=== PATIENT | female | born 1990 | race Caucasian/White ===

== ENCOUNTER 2019-02-02 13:03 | Emergency (ER) | payer SELFPAY ==
[2019-02-02 13:11] VITALS: BMI 27.1
[2019-02-02 13:15] VITALS: TEMP 99.3
[2019-02-02 14:08] LABS: BASO # 0.1 K/uL (0.0-0.2); BASO % 0.6 % (0.0-2.0); EOS # 0.2 K/uL (0.0-0.7); EOS % 2.5 % (0.0-4.0); HEMOGLOBIN 11.2 g/dL (11.0-16.0); LYMPH # 2.3 K/uL (1.0-4.3); LYMPH % 24.3 % (20.0-40.0); MEAN CELL VOLUME 73.6 fL (81.0-99.0); MEAN CORPUSCULAR HEMOGLOBIN 24.3 pg (27.0-31.0); MEAN CORPUSCULAR HGB CONC 33.1 g/dL (33.0-37.0); MEAN PLATELET VOLUME 7.3 fL (7.2-11.7); MONO # 0.5 K/uL (0.0-0.8); MONO % 5.6 % (0.0-10.0); NEUT # 6.4 K/uL (1.8-7.0); RBC 4.61 Mil/uL (3.80-5.20); RED CELL DISTRIBUTION WIDTH 16.5 % (11.5-14.5); WHITE BLOOD COUNT 9.5 K/uL (4.8-10.8)
[2019-02-02 14:21] LABS: ALB/GLOB RATIO 1.3 (1.0-2.1); ALBUMIN 4.4 g/dL (3.5-5.0); ALT/SGPT 11 U/L (9-52); AST/SGOT 22 U/L (14-36); BLOOD UREA NITROGEN 10 mg/dL (7-17); CALCIUM 9.4 mg/dl (8.6-10.4); GFR NON-AFRICAN AMERICAN > 60; LIPASE 87 U/L (23-300)
[2019-02-02 14:28] LABS: SQUAMOUS EPITHIAL 1 /hpf (0-5); URINE BACTERIA RARE (<OCC); URINE BILIRUBIN NEGATIVE (NEGATIVE); URINE BLOOD 1+ (NEGATIVE); URINE CLARITY Hazy (Clear); URINE COLOR Yellow (YELLOW); URINE GLUCOSE (UA) NORMAL (Normal); URINE LEUKOCYTE ESTERASE NEG Leu/uL (Negative); URINE PROTEIN NEGATIVE (NEGATIVE); URINE UROBILINOGEN NORMAL mg/dL (0.2-1.0)
--- NOTE | 2019-02-02 15:01 | C.PDOC ---
History Of Present Illness 28-year-old female presents to the emergency department with complaints of suprapubic abdominal pain for the last four days. Patient states that she did a home test which resulted positive. Patient reports her last menstrual period was January 02, 2019. Patient denies vaginal bleeding, vaginal discharge, nausea and vomiting. Time Seen by Provider: 02/02/19 13:28 Chief Complaint (Nursing): Abdominal Pain History Per: Patient History/Exam Limitations: no limitations Onset/Duration Of Symptoms: Days (4) Current Symptoms Are (Timing): Still Present Location Of Pain/Discomfort: Suprapubic Quality Of Discomfort: "Pain" Associated Symptoms: denies: Nausea, Vomiting, Other (vaginal bleeding, vaginal discharge) Abnormal Vaginal Bleeding: No Last Menstral Period: 01-02-19 Past Medical History Reviewed: Historical Data, Nursing Documentation, Vital Signs Vital Signs: Last Vital Signs Temp 99.3 F 02/02/19 13:08 Pulse 96 H 02/02/19 13:08 Resp 20 02/02/19 13:08 BP 126/82 02/02/19 13:08 Pulse Ox 100 02/02/19 13:08 - Medical History PMH: No Chronic Diseases Surgical History: No Surg Hx Family History: States: No Known Family Hx - Social History Hx Alcohol Use: No Hx Substance Use: No - Immunization History Hx Tetanus Toxoid Vaccination: No Hx Influenza Vaccination: No Hx Pneumococcal Vaccination: No Review Of Systems Except As Marked, All Systems Reviewed And Found Negative. Gastrointestinal: Positive for: Abdominal Pain Physical Exam - Physical Exam Appears: Non-toxic, No Acute Distress Skin: Normal Color, Warm, Dry Head: Atraumatic, Normacephalic Eye(s): bilateral: Normal Inspection, PERRL, EOMI Nose: Normal Oral Mucosa: Moist Neck: Normal, Supple Chest: Symmetrical, No Tenderness Cardiovascular: Rhythm Regular, No Murmur Respiratory: Normal Breath Sounds, No Rales, No Rhonchi, No Wheezing Gastrointestinal/Abdominal: Soft, Tenderness (suprapubic tenderness), No Guarding, No Rebound Neurological/Psych: Oriented x3, Normal Speech, Normal Cognition ED Course And Treatment - Laboratory Results Result Diagrams: 02/02/19 14:03 02/02/19 14:03 Lab Results: Total Bilirubin 0.2 mg/dL (0.2-1.3) 02/02/19 14:03 AST 22 U/L (14-36) 02/02/19 14:03 ALT 11 U/L (9-52) 02/02/19 14:03 Alkaline Phosphatase 53 U/L (38-126) 02/02/19 14:03 Total Protein 7.9 g/dL (6.3-8.3) 02/02/19 14:03 Albumin 4.4 g/dL (3.5-5.0) 02/02/19 14:03 Globulin 3.4 gm/dL (2.2-3.9) 02/02/19 14:03 Albumin/Globulin Ratio 1.3 (1.0-2.1) 02/02/19 14:03 Lipase 87 U/L (23-300) 02/02/19 14:03 Urine Color Yellow (YELLOW) 02/02/19 14:09 Urine Clarity Hazy (Clear) 02/02/19 14:09 Urine pH 7.0 (5.0-8.0) 02/02/19 14:09 Ur Specific [place] 1.023 (1.003-1.030) 02/02/19 14:09 Urine Protein Negative mg/dL (NEGATIVE) 02/02/19 14:09 Urine Glucose (UA) Normal mg/dL (Normal) 02/02/19 14:09 Urine Ketones Negative mg/dL (NEGATIVE) 02/02/19 14:09 Urine Blood 1+ (NEGATIVE) H 02/02/19 14:09 Urine Nitrate Negative (NEGATIVE) 02/02/19 14:09 Urine Bilirubin Negative (NEGATIVE) 02/02/19 14:09 Urine Urobilinogen Normal mg/dL (0.2-1.0) 02/02/19 14:09 Ur Leukocyte Esterase Neg William/uL (Negative) 02/02/19 14:09 Urine WBC (Auto) 2 /hpf (0-5) 02/02/19 14:09 Urine RBC (Auto) 15 /hpf (0-3) H 02/02/19 14:09 Ur Squamous Epith Cells 1 /hpf (0-5) 02/02/19 14:09 Urine Bacteria Rare (<OCC) 02/02/19 14:09 Beta HCG, Quant 194.13 mIU/ML 02/02/19 14:03 O2 Sat by Pulse Oximetry: 100 (RA) Pulse Ox Interpretation: Normal - CT Scan/US US OB/Transvaginal Other Rad Studies (CT/US): Read By Radiologist, Radiology Report Reviewed CT/US Interpretation: IMPRESSION: Thick endometrial stripe. No evidence of intrauterine . 0.6 centimeter likely simple cyst noted at the posterior aspect of the lower uterine segment of uncertain etiology. No evidence of acute pathology in the ovaries. Medical Decision Making Medical Decision Making: Plan: Chemistry CBC Urinalysis US OB Transvaginal Assessment: Threatened miscarriage Disposition - Disposition Referrals: [facility] [Outside] Disposition: HOME/ ROUTINE Disposition Time: 15:49 Condition: STABLE Additional Instructions: follow up with your machine stuffer automatic in 2 days you need a repeat bhcg within 48 hours you need a repeat ultrasound call to make an appointment return to ER if symptoms worsens or progress Instructions: Threatened Miscarriage (DC) Forms: [facility] (Croatian), General Discharge Instructions - Clinical Impression Clinical Impression: Miscarriage, threatened, early - Scribe Statement The provider has reviewed the documentation as recorded by the Scribe (Ambrose Ivey) Provider Attestation: All medical record entries made by the Scribe were at my direction and perso mary dictated by me. I have reviewed the chart and agree that the record accurately reflects my personal performance of the history, physical exam, medical decision making, and the department course for this patient. I have also personally directed, reviewed, and agree with the discharge instructions and disposition.
--- NOTE | 2019-02-02 15:47 | US ---
Date of service: 02/02/2019 HISTORY: abd. pain COMPARISON: None available. TECHNIQUE: Transabdominal and endovaginal ultrasound examination of the pelvis. FINDINGS: UTERUS: Measures 7.5 x 4.7 x 5.2 cm. Normal in size and appearance. No fibroid or other mass lesion seen. There is round anechoic likely cystic structure noted at posterior lower uterine appears from the endometrium measures 0.5 x 0.5 x 0.6 centimeter. The differential consideration includes a cyst in the myometrium or degenerated small fibroid. ENDOMETRIUM: Measures 17.4 mm in diameter. Unremarkable. CERVIX: No cervical abnormality identified. RIGHT OVARY: Measures 2.6 x 2.2 x 2.7 cm. No solid mass. Normal flow. LEFT OVARY: Measures 2.7 x 1.6 x 2.5 cm. No solid mass. Normal flow. FREE FLUID: No significant free fluid noted. OTHER FINDINGS: None. IMPRESSION: Thick endometrial stripe. No evidence of intrauterine . 0.6 centimeter likely simple cyst noted at the posterior aspect of the lower uterine segment of uncertain etiology. No evidence of acute pathology in the ovaries.
[2019-02-02 16:34] VITALS: BP 111/71; PULSE 87; RESP 18; O2SAT 98
== END 2019-02-02 16:35 | disposition home or self-care (01) ==
LOC: C.ER 13:03
DX: O20.0 Threatened abortion (principal); Z3A.00 Weeks of gestation of pregnancy not specified

== ENCOUNTER 2019-02-04 18:52 | Emergency (ER) | payer SELFPAY ==
[2019-02-04 18:52] VITALS: BMI 27.1
[2019-02-04 21:16] VITALS: BP 111/77; PULSE 107; RESP 18; TEMP 98.2; O2SAT 98
--- NOTE | 2019-02-04 23:27 | C.PDOC ---
History Of Present Illness 28 year old female presents to the ED for beta HCG level checked. Patient was seen in the ED on 02/02 for possible threatened AB and advised to return for repeat level check. Patient denies abdominal pain, fever, chills, nausea, vomiting, vaginal bleeding, vaginal discharge. Time Seen by Provider: 02/04/19 19:31 Chief Complaint (Nursing): Medical Clearance History Per: Patient History/Exam Limitations: no limitations Onset/Duration Of Symptoms: Days Current Symptoms Are (Timing): Still Present Reports Recently: Seen In ED (02/02/19) Recent travel outside of the [place]: No Additional History Per: Patient Past Medical History Reviewed: Historical Data, Nursing Documentation, Vital Signs Vital Signs: Last Vital Signs Temp 98.2 F 02/04/19 21:15 Pulse 107 H 02/04/19 21:15 Resp 18 02/04/19 21:15 BP 111/77 02/04/19 21:15 Pulse Ox 98 02/04/19 21:15 - Medical History PMH: No Chronic Diseases Surgical History: No Surg Hx Family History: States: Unknown Family Hx - Social History Hx Alcohol Use: No Hx Substance Use: No - Immunization History Hx Tetanus Toxoid Vaccination: No Hx Influenza Vaccination: No Hx Pneumococcal Vaccination: No Review Of Systems Constitutional: Negative for: Fever, Chills Gastrointestinal: Negative for: Nausea, Vomiting, Abdominal Pain Genitourinary: Negative for: Vaginal Discharge, Vaginal Bleeding Skin: Negative for: Rash Neurological: Negative for: Weakness, Numbness Physical Exam - Physical Exam Appears: Non-toxic, No Acute Distress Skin: Normal Color, Warm, Dry Head: Atraumatic, Normacephalic Eye(s): bilateral: Normal Inspection Neck: Normal ROM, Supple Chest: Symmetrical Cardiovascular: Rhythm Regular Respiratory: Normal Breath Sounds, No Rales, No Rhonchi, No Wheezing Gastrointestinal/Abdominal: Soft, No Tenderness Extremity: Normal ROM Neurological/Psych: Oriented x3, Normal Speech, Normal Cognition Gait: Steady ED Course And Treatment - Laboratory Results Lab Results: Beta HCG, Quant 535.52 mIU/ML 02/04/19 19:42 O2 Sat by Pulse Oximetry: 98 (ON RA) Pulse Ox Interpretation: Normal Progress Note: Plan: - Labs. Labs reviewed Betta HcG levels done and has increased. Patient was advised to follow up with OB for serial beta HcG level check. Return precautions were discussed Disposition - Disposition Disposition: HOME/ ROUTINE Disposition Time: 00:20 Condition: STABLE Additional Instructions: Follwo up with your OB GYNE for serial HCG Return to ER if vaginal bleeding Abdominal pain or worse Forms: General Discharge Instructions, [facility] (Lao) - Clinical Impression Clinical Impression: Miscarriage, threatened, early - PA / SENIOR RESEARCH SCIENTIST / Resident Statement MD/DO has reviewed & agrees with the documentation as recorded. - Scribe Statement The provider has reviewed the documentation as recorded by the Scribe José Miguel Manjarrez All medical record entries made by the Scribe were at my direction and personally dictated by me. I have reviewed the chart and agree that the record accurately reflects my personal performance of the history, physical exam, medical decision making, and the department course for this patient. I have also personally directed, reviewed, and agree with the discharge instructions and disposition.
== END 2019-02-04 21:16 | disposition home or self-care (01) ==
LOC: C.ER 18:52
DX: O20.0 Threatened abortion (principal); Z3A.00 Weeks of gestation of pregnancy not specified